=== PATIENT | female | born 1980 | race Caucasian/White ===

== ENCOUNTER 2021-10-16 12:18 | Outpatient (CLI) | payer OTHER | END 2021-10-16 12:19 | disposition home or self-care (01) | LOC: TBSIIMAG 12:18 | PROVIDERS: ATTEND Neurological Surgery | DX: M25.512 Pain in left shoulder (principal); M54.12 Radiculopathy, cervical region; Z98.890 Other specified postprocedural states | CPT/HCPCS: 72040 ==

== ENCOUNTER 2021-10-23 07:31 | Outpatient (CLI) | payer BC | END 2021-10-23 07:32 | disposition home or self-care (01) | LOC: TBSIIMAG 07:31 | PROVIDERS: ATTEND Neurological Surgery | DX: M25.512 Pain in left shoulder (principal); M75.112 Incomplete rotator cuff tear or rupture of left shoulder, not specified as traumatic; M25.412 Effusion, left shoulder ==